=== PATIENT | male | born 1990 | race Caucasian/White ===

== ENCOUNTER → 2019-07-05 | Emergency (ER) | payer MEDICAID ==
[~2019-07-05] VITALS: Ht 167.6 cm; Wt 61.2 kg
[~2019-07-05] MED LIST: LIDOCAINE 1% HCL (LOCAL ANESTH.) INJ 20ML MDV ID ONE; LIDOCAINE 1% HCL (LOCAL ANESTH.) INJ 20ML MDV ONE; NEOMYCIN-BACITRACIN-POLYM UNITDOSE PKG TOP OINT TOP ONE; TETANUS-DIPTH-ACEL PERTUSSIS 0.5ML SYR Tdap IM ONE; cefTRIAXone 1GM/50ML D5W 50 ML IV ONE; cefTRIAXone W LIDOCAINE 1 GM IM IM ONE
[2019-07-05 07:23] VITALS: BP 162/91
== END | disposition home or self-care (01) ==
LOC: EDBD 04:52 → ER 04:52
DX: S61.216A Laceration without foreign body of right little finger without damage to nail, initial encounter (principal); S61.214A Laceration without foreign body of right ring finger without damage to nail, initial encounter; W26.0XXA Contact with knife, initial encounter; Y93.89 Activity, other specified; Y92.89 Other specified places as the place of occurrence of the external cause; Y99.8 Other external cause status
CPT/HCPCS: 12002; 36415; 73120; 80320; 90471; 90715; 96365; 99284; J0696; J2001